=== PATIENT | male | born 1990 | race American Indian/Alaskan Native ===

== ENCOUNTER 2019-05-04 11:45 | Emergency (ER) | payer SELFPAY ==
[2019-05-04 12:19] VITALS: BP 143/83
[2019-05-04] MEDS ORDERED: ACETAMINOPHEN 325 MG TAB PO ONE (12:21)
[2019-05-04] MEDS ORDERED: IBUPROFEN 600 MG TAB PO ONE ×2 (12:21→12:23)
--- NOTE | 2019-05-04 12:21 | Event Note ---
ED Screening Note ED Screening Note: states he has a cough with mucus production for three days +fever +vomiting +diarrhea chest discomfort with cough states he has throat discomfort states he has ear discomfort no PMhx allergy: PCN states last night took nyquil and tyenol and ibuprofen This initial assessment/diagnostic orders/clinical plan/treatment(s) is/are subject to change based on patients health status, clinical progression and re- assessment by fellow clinical providers in the ED. Further treatment and workup at subsequent clinical providers discretion. Patient/guardian urged not to elope from the ED as their condition may be serious if not clinically assessed and managed. Initial orders include: CXR ibuprofen and tylenol
[2019-05-04] MEDS ORDERED: ACETAMINOPHEN 325 MG TAB ONE (12:24)
--- NOTE | 2019-05-04 13:23 | XRay Report ---
CHEST 2 VIEWS INDICATION / CLINICAL INFORMATION: cough, fever. COMPARISON: None available. FINDINGS: SUPPORT DEVICES: None. HEART / MEDIASTINUM: No significant abnormality. LUNGS / PLEURA: No significant pulmonary or pleural abnormality. No pneumothorax. ADDITIONAL FINDINGS: No significant additional findings. IMPRESSION: 1. No acute findings. Signer Name: Joss Antonio MD Signed: 05/04/2019 1:19 PM Workstation Name: [id number]
--- NOTE | 2019-05-04 14:06 | Emergency Department Report ---
- General Chief Complaint: Upper Respiratory Infection Stated Complaint: CHEST PAIN/FEVER Time Seen by Provider: 05/04/19 12:17 Source: patient Mode of arrival: Ambulatory Limitations: No Limitations - History of Present Illness Initial Comments: pt is a 28 yo male who states he has a cough with mucus production for three days. he has associated fever, couple episodes of vomiting, couple episodes of diarrhea, chest discomfort with frequent cough, throat discomfort, ear discomfort. he denies any SOB. no PMhx. allergy: PCN.states last night took nyquil and tyenol and ibuprofen. - Related Data Allergies Allergy/AdvReac Type Severity Reaction Status Date / Time Penicillins Allergy Unknown Verified 05/04/19 11:55 ED Review of Systems ROS: Stated complaint: CHEST PAIN/FEVER Other details as noted in HPI Comment: All other systems reviewed and negative ED Past Medical Hx - Past Medical History Previous Medical History?: No - Surgical History Past Surgical History?: No - Social History Smoking Status: Never Smoker Substance Use Type: None ED Physical Exam - General Limitations: No Limitations General appearance: alert, in no apparent distress - Head Head exam: Present: atraumatic, normocephalic - Eye Eye exam: Present: normal appearance - ENT ENT exam: Present: normal orophraynx, mucous membranes moist, TM's normal bilaterally, normal external ear exam - Respiratory Respiratory exam: Present: normal lung sounds bilaterally. Absent: respiratory distress, wheezes, rales, rhonchi, stridor, chest wall tenderness, accessory muscle use, decreased breath sounds, prolonged expiratory - Cardiovascular Cardiovascular Exam: Present: regular rate, normal rhythm, normal heart sounds. Absent: systolic murmur, diastolic murmur, rubs, gallop - Neurological Exam Neurological exam: Present: alert, oriented X3 - Psychiatric Psychiatric exam: Present: normal affect, normal mood - Skin Skin exam: Present: warm, dry, intact ED Course Vital Signs 05/04/19 05/04/19 05/04/19 12:17 12:23 12:24 Temperature 101.9 F H Pulse Rate 109 H Respiratory 18 18 18 Rate Blood Pressure 143/83 O2 Sat by Pulse 96 Oximetry 05/04/19 14:02 Temperature 99.3 F Pulse Rate 85 Respiratory 18 Rate Blood Pressure O2 Sat by Pulse 98 Oximetry ED Medical Decision Making - Lab Data Vital Signs 05/04/19 05/04/19 05/04/19 12:17 12:23 12:24 Temperature 101.9 F H Pulse Rate 109 H Respiratory 18 18 18 Rate Blood Pressure 143/83 O2 Sat by Pulse 96 Oximetry 05/04/19 14:02 Temperature 99.3 F Pulse Rate 85 Respiratory 18 Rate Blood Pressure O2 Sat by Pulse 98 Oximetry - Radiology Data Radiology results: report reviewed CHEST 2 VIEWS INDICATION / CLINICAL INFORMATION: cough, fever. COMPARISON: None available. FINDINGS: SUPPORT DEVICES: None. HEART / MEDIASTINUM: No significant abnormality. LUNGS / PLEURA: No significant pulmonary or pleural abnormality. No pneumothorax. ADDITIONAL FINDINGS: No significant additional findings. IMPRESSION: 1. No acute findings. Signer Name: Joss Antonio MD Signed: 05/04/2019 1:19 PM Workstation Name: [id number] Transcribed By: HARLEY Dictated By: Joss Antonio MD Electronically Authenticated By: Joss Antonio MD Signed Date/Time: 05/04/191318 DD/ 18 TD/TT: - Medical Decision Making pt is a 28 yo male who states he has a cough with mucus production for three days. he has associated fever, couple episodes of vomiting, couple episodes of diarrhea, chest discomfort with frequent cough, throat discomfort, ear discomfort. he denies any SOB. no PMhx. allergy: PCN.states last night took nyquil and tyenol and ibuprofen. initial vitals with elevated temp and HR which improved upon tylenol and ibuprofen improvement. CXR: 1. No acute findings. on exam: normal oropharynx, normal TMs and canals, normal breath sounds bilaterally without w/r/r. pt has clinical s/sx of influenza. pt is out of the 48 hour range for tamiflu. discussed the importance oral rehydration and supportive care. please increase your fluid intake over the next several days. may alternate tylenol then ibuprofen every 4 hours as needed for fever or body aches. may take an over the counter cough/cold medication. follow up with a primary care doctor in the next 2-3 days. return to the emergency room for any new or worsening symptoms. - Differential Diagnosis PNA, URI, influenza, otitis media, pharyngitis, viral syndrome Critical care attestation.: If time is entered above; I have spent that time in minutes in the direct care of this critically ill patient, excluding procedure time. ED Disposition Clinical Impression: Influenza Disposition: DC-01 TO HOME OR SELFCARE Is pt being admited?: No Does the pt Need Aspirin: No Condition: Stable Instructions: Influenza (ED) Additional Instructions: please increase your fluid intake over the next several days. may alternate tylenol then ibuprofen every 4 hours as needed for fever or body aches. may take an over the counter cough/cold medication. follow up with a primary care doctor in the next 2-3 days. return to the emergency room for any new or worsening symptoms. Referrals: JONI MEHTA MD [Staff Physician] - 2-3 Days [facility] [Outside] - 2-3 Days [facility] [Outside] - 2-3 Days Forms: Work/School Release Form(ED) Time of Disposition: 14:04 Print Language: VIETNAMESE
== END 2019-05-04 15:30 | disposition home or self-care (01) ==
LOC: ED 11:45
DX: J11.1 Influenza due to unidentified influenza virus with other respiratory manifestations (principal); Z88.0 Allergy status to penicillin
CPT/HCPCS: 71046